=== PATIENT | female | born 1940 | race Caucasian/White ===

== ENCOUNTER 2018-12-23 10:53 | Emergency (ER) | payer MEDICARE, BC ==
[2018-12-23] MEDS ORDERED: Sodium Chloride 0.9% 10 ML Syringe FLUSH PRN (11:08)
[2018-12-23] MEDS ORDERED: HYDROmorphone 0.5 MG/0.5 ML Syringe IVPUSH ONE (12:13)
--- NOTE | 2018-12-23 12:47 | CR ---
Chest: Portable view of the chest was obtained. Comparison: Previous chest x-ray of 04/07/09. Heart size and mediastinum are within normal limits for portable technique. Lungs are clear with no acute parenchymal change. Bony structures are grossly intact. Impression: 1. Nothing acute is seen on portable chest x-ray. Diagnostic code #1
[2018-12-23] MEDS ORDERED: Ondansetron 4 MG/2 ML SDV IVPUSH ONE (13:16)
[2018-12-23] MEDS ORDERED: Ketorolac 15 MG/ML SDV IVPUSH ONE (13:28)
[2018-12-23] MEDS ORDERED: Acetaminophen 325 MG Tab PO ONE (15:10)
[2018-12-23] MEDS ORDERED: Acetaminophen 325 MG Tab ONE (15:20)
--- NOTE | 2018-12-23 17:24 | MR ---
MRI brain Technique: T1 sagittal; T2, T2 FLAIR, T1, T2 gradient echo and diffusion axial; T1 and T2 gradient echo coronal images through the brain were obtained. Comparison: Prior head CT study performed earlier on the same date (10:58 AM). Findings: Mild areas of increased signal are scattered within the subcortical and periventricular white matter most likely representing small vessel ischemic demyelination change. Several areas of increased signal are also noted within the basal ganglia of similar etiology. Mild areas of increased signal is seen within the donis also of similar etiology. No larger areas of abnormal signal are seen within the brain parenchyma. No midline shift or mass effect is seen. Ventricles along with basal cisterns and sulci over the convexities are mildly prominent. Normal signal void is seen within the major cerebral arteries within the skull base. Dominant left vertebral artery is incidentally noted. Mild mucosal thickening is seen within both maxillary sinuses. Mild mucosal thickening is seen within the ethmoid and sphenoid sinus. Abnormal diffusion is seen within the left medial occipital lobe compatible with relatively acute infarct. No other diffusion abnormalities are seen. Impression: 1. Abnormal diffusion within the medial left occipital lobe compatible with relatively acute infarct. This may be reversible as no abnormal signal is seen on the FLAIR sequence at this time within this area. 2. Other senescent change as noted above. 3. Sinus findings which are most likely chronic. Diagnostic code #5
--- NOTE | 2018-12-23 17:34 | EDM.PDOC ---
ED HPI GENERAL MEDICAL PROBLEM - General Chief Complaint: Neuro Symptoms/Deficits Stated Complaint: POSSIBLE STOKE Time Seen by Provider: 12/23/18 11:08 Source of Information: Reports: Patient History Limitations: Reports: No Limitations - History of Present Illness INITIAL COMMENTS - FREE TEXT/NARRATIVE: The patient presents from Dr Cantor's office for right sided weakness and dizziness. The patient has been sick all weekend with cough, congestion, runny nose and fever. At about 8am she started to have a headache and she was dizzy. She went to her doctor and she could not even walk down the and she had weakness on the right side. When the patient arrived here she had just mild weakness in the right arm and leg. She still had the dizziness and headache. She has nausea with it. She has no chest pain, shortness of breath, abdominal pain, dysuria or hematuria. She has no history of CVA. She does have HTN and had an CA with stents. Her last time know well was 8am this morning. Onset: Sudden Duration: Hour(s): (8am) Location: Reports: Head Severity: Moderate Improves with: Reports: None Worsens with: Reports: None Associated Symptoms: Reports: Cough, Headaches, Nausea/Vomiting. Denies: Chest Pain, Fever/Chills, Shortness of Breath Treatments CAREER DEVELOPMENT COUNSELOR: Reports: Other Medication(s) Other Treatments CAREER DEVELOPMENT COUNSELOR: HTN medication Frontal Head Pain Score (Numeric/FACES): 9 - Related Data Allergies Allergy/AdvReac Type Severity Reaction Status Date / Time cephalexin monohydrate Allergy Headache Verified 12/23/18 11:33 [From Keflex] ciprofloxacin Allergy Headache Verified 12/23/18 11:33 Penicillins Allergy Nausea and Verified 12/23/18 11:33 Vomiting Home Meds: Home Meds Enalapril [Vasotec] 10 mg PO DAILY 12/23/18 [History] Hydrochlorothiazide [Microzide] 12.5 mg PO DAILY 12/23/18 [History] Insulin Glarg,Human.Rec.Analog [Lantus] 1 dose SQ BID 12/23/18 [History] Insulin Lispro [Humalog] 1 dose SQ QID 12/23/18 [History] Past Medical History HEENT History: Reports: None Cardiovascular History: Reports: Hypertension, CA, Stents Respiratory History: Reports: None Genitourinary History: Reports: None DIRECTOR OF RADIOLOGY History: Reports: None Musculoskeletal History: Reports: None Neurological History: Reports: None Psychiatric History: Reports: None Endocrine/Metabolic History: Reports: Diabetes, Type II Hematologic History: Reports: None Immunologic History: Reports: None Oncologic (Cancer) History: Reports: None Dermatologic History: Reports: None - Past Surgical History Head Surgeries/Procedures: Reports: None Cardiovascular Surgical History: Reports: Coronary Artery Stent GI Surgical History: Reports: Appendectomy, Cholecystectomy Endocrine Surgical History: Reports: None Neurological Surgical History: Reports: None Oncologic Surgical History: Reports: None Dermatological Surgical History: Reports: None Social & Family History - Tobacco Use Smoking Status *Q: Never Smoker - Caffeine Use Caffeine Use: Reports: Coffee - Recreational Drug Use Recreational Drug Use: No ED ROS GENERAL - Review of Systems Review Of Systems: See Below Constitutional: Reports: No Symptoms HEENT: Reports: No Symptoms Respiratory: Reports: Shortness of Breath, Cough Cardiovascular: Reports: No Symptoms Endocrine: Reports: No Symptoms GI/Abdominal: Reports: No Symptoms : Reports: No Symptoms Musculoskeletal: Reports: No Symptoms Skin: Reports: No Symptoms Neurological: Reports: Headache, Weakness (right arm and leg) ED EXAM, NEURO - Physical Exam Exam: See Below Exam Limited By: No Limitations General Appearance: Alert, No Apparent Distress Ears: Normal External Exam Nose: Normal Inspection Head Exam: Atraumatic, Normocephalic Neck: Normal Inspection Respiratory/Chest: No Respiratory Distress, Lungs Clear, Normal Breath Sounds Cardiovascular: Regular Rate, Rhythm, No Edema, No Murmur GI/Abdominal: Soft, Non-Tender, No Organomegaly, No Mass Neurological: Alert, Oriented x 3, Other (Mild weakness to the right arm and leg. Abnormal finger to nose with the right arm.) EKG INTERPRETATION EKG Date: 12/23/18 Time: 11:06 Rhythm: Other (Sinus bradycardia) Rate (Beats/Min): 57 [place]: Normal P-Wave: Present QRS: Normal ST-T: Normal QT: Normal Course - Vital Signs Last Recorded V/S: Last Vital Signs Temp Pulse 62 12/23/18 11:20 Resp 16 12/23/18 11:20 BP 179/87 H 12/23/18 11:20 Pulse Ox 97 12/23/18 11:20 - Orders/Labs/Meds Orders: Active Orders 24 hr Category Date Time Status Cardiac Monitoring [RC] . DIRECTED Care 12/23/18 11:08 Active EKG Documentation Completion [RC] STAT Care 12/23/18 11:10 Active Peripheral IV Care [RC] . DIRECTED Care 12/23/18 11:11 Active Ang Head [CT] Stat Exams 12/23/18 17:35 Ordered Ang Neck [CT] Stat Exams 12/23/18 17:35 Ordered Head wo Cont [CT] Routine Exams 12/23/18 11:05 Taken UA W/MICROSCOPIC [URIN] Stat Lab 12/23/18 13:28 Ordered Sodium Chloride 0.9% [Normal Saline] 100 ml Med 12/23/18 18:00 Active IV ASDIRECTED Sodium Chloride 0.9% [Saline Flush] Med 12/23/18 11:08 Active 10 ml FLUSH ASDIRECTED PRN Peripheral IV Insertion Adult [OM.PC] Stat Oth 12/23/18 11:08 Ordered Medication Orders Sodium Chloride (Normal Saline) 100 mls @ 80 mls/hr IV ASDIRECTED JIM Sodium Chloride (Saline Flush) 10 ml FLUSH ASDIRECTED PRN PRN Reason: Keep Vein Open Last Admin: 12/23/18 11:51 Dose: 10 ml Labs: Laboratory Tests 12/23/18 12/23/18 12/23/18 Range/Units 10:58 11:15 11:15 WBC 11.52 H (3.98-10.04) K/mm3 RBC 4.12 (3.98-5.22) M/mm3 Hgb 12.9 (11.2-15.7) gm/L Hct 38.4 (34.1-44.9) % MCV 93.2 (79.4-94.8) fl MCH 31.3 (25.6-32.2) pg MCHC 33.6 (32.2-35.5) g/dl RDW Std Deviation 46.4 H (36.4-46.3) fL Plt Count 439 H (182-369) K/mm3 MPV 9.1 L (9.4-12.3) fl Neut % (Auto) 73.3 H (34.0-71.1) % Lymph % (Auto) 19.8 (19.3-51.7) % [place] % (Auto) 5.6 (4.7-12.5) % Eos % (Auto) 0.7 (0.7-5.8) Baso % (Auto) 0.3 (0.1-1.2) % Neut # (Auto) 8.46 H (1.56-6.13) K/mm3 Lymph # (Auto) 2.28 (1.18-3.74) K/mm3 [place] # (Auto) 0.64 H (0.24-0.36) K/mm3 Eos # (Auto) 0.08 (0.04-0.36) K/mm3 Baso # (Auto) 0.03 (0.01-0.08) K/mm3 PT 10.7 (9.7-12.0) SECONDS INR 0.98 APTT 27 (22-31) SECONDS Sodium (136-145) mEq/L Potassium (3.5-5.1) mEq/L Chloride (98-107) mEq/L Carbon Dioxide (21-32) mEq/L Anion Gap (5-15) BUN (7-18) mg/dL Creatinine (0.55-1.02) mg/dL Est Cr Clr Drug Dosing mL/min Estimated GFR (MDRD) (>60) mL/min BUN/Creatinine Ratio (14-18) Glucose (83-115) mg/dL POC Glucose 165 H (83-110) mg/dL Calcium (8.5-10.1) mg/dL Magnesium (1.8-2.4) mg/dl Total Bilirubin (0.2-1.0) mg/dL AST (15-37) U/L ALT (14-59) U/L Alkaline Phosphatase (46-116) U/L Troponin I (0.00-0.056) ng/mL Total Protein (6.4-8.2) g/dl Albumin (3.4-5.0) g/dl Globulin gm/dL Albumin/Globulin Ratio (1-2) 12/23/18 Range/Units 11:15 WBC (3.98-10.04) K/mm3 RBC (3.98-5.22) M/mm3 Hgb (11.2-15.7) gm/L Hct (34.1-44.9) % MCV (79.4-94.8) fl MCH (25.6-32.2) pg MCHC (32.2-35.5) g/dl RDW Std Deviation (36.4-46.3) fL Plt Count (182-369) K/mm3 MPV (9.4-12.3) fl Neut % (Auto) (34.0-71.1) % Lymph % (Auto) (19.3-51.7) % [place] % (Auto) (4.7-12.5) % Eos % (Auto) (0.7-5.8) Baso % (Auto) (0.1-1.2) % Neut # (Auto) (1.56-6.13) K/mm3 Lymph # (Auto) (1.18-3.74) K/mm3 [place] # (Auto) (0.24-0.36) K/mm3 Eos # (Auto) (0.04-0.36) K/mm3 Baso # (Auto) (0.01-0.08) K/mm3 PT (9.7-12.0) SECONDS INR APTT (22-31) SECONDS Sodium 138 (136-145) mEq/L Potassium 3.6 (3.5-5.1) mEq/L Chloride 100 (98-107) mEq/L Carbon Dioxide 28 (21-32) mEq/L Anion Gap 13.6 (5-15) BUN 14 (7-18) mg/dL Creatinine 0.9 (0.55-1.02) mg/dL Est Cr Clr Drug Dosing 37.00 mL/min Estimated GFR (MDRD) > 60 (>60) mL/min BUN/Creatinine Ratio 15.6 (14-18) Glucose 173 H (83-115) mg/dL POC Glucose (83-110) mg/dL Calcium 9.2 (8.5-10.1) mg/dL Magnesium 2.0 (1.8-2.4) mg/dl Total Bilirubin 0.4 (0.2-1.0) mg/dL AST 20 (15-37) U/L ALT 18 (14-59) U/L Alkaline Phosphatase 68 (46-116) U/L Troponin I < 0.017 (0.00-0.056) ng/mL Total Protein 8.2 (6.4-8.2) g/dl Albumin 3.6 (3.4-5.0) g/dl Globulin 4.6 gm/dL Albumin/Globulin Ratio 0.8 L (1-2) Meds: Medications Generic Name Dose Route Start Last Admin Trade Name Freq PRN Reason Stop Dose Admin Sodium Chloride 100 mls @ 80 mls/hr 12/23/18 18:00 Normal Saline IV ASDIRECTED JIM Sodium Chloride 10 ml 12/23/18 11:08 12/23/18 11:51 Saline Flush FLUSH 10 ml ASDIRECTED PRN Administration Keep Vein Open Discontinued Medications Generic Name Dose Route Start Last Admin Trade Name Freq PRN Reason Stop Dose Admin Acetaminophen 975 mg 12/23/18 15:10 12/23/18 15:15 Tylenol PO 12/23/18 15:11 975 mg NOW ONE Administration Acetaminophen Confirm 12/23/18 15:20 Tylenol Administered 12/23/18 15:21 Dose 325 mg .ROUTE .STK-MED ONE Hydromorphone HCl 0.5 mg 12/23/18 12:13 12/23/18 12:22 Dilaudid IVPUSH 12/23/18 12:14 0.5 mg ONETIME ONE Administration Iopamidol 100 ml 12/23/18 18:00 Isovue-370 (76%) IVPUSH 12/23/18 18:01 ONETIME ONE Ketorolac Tromethamine 15 mg 12/23/18 13:28 12/23/18 13:39 Toradol IVPUSH 12/23/18 13:29 15 mg ONETIME ONE Administration Metoclopramide HCl 10 mg 12/23/18 18:02 Reglan IVPUSH 12/23/18 18:03 ONETIME ONE Ondansetron HCl 4 mg 12/23/18 13:16 12/23/18 13:21 Zofran IVPUSH 12/23/18 13:17 4 mg ONETIME ONE Administration - Re-Assessments/Exams Free Text/Narrative Re-Assessment/Exam: 12/23/18 18:03 A stroke alert was called and the patient was last known well at 8am this morning. She has mild weakness to her right arm and leg. I ordered an IV saline lock, EKG, CT of her head, CXR, and labs. Her CXR shows nothing acute. The CT of her head shows no acute intracranial abnormality. Mild age appropriate global brain atrophy. Her WBC was elevated at 11.52. Her PT and PTT look good. Her CMP looks good. Her symptoms got better as far as her weakness. She still has a headache and dizziness. I ordered some zofran and dilaudid. The dilaudid did not agree with her. I was able to get an MRI and that showed abnormal diffusion within the medial left occipital lobe compatible with relatively acute infarct. This may be reversible as no abnormal signal is seen on the FLAIR sequence at this time within this area. I called [facility] in [place] and talked with Dr Carlos the neurologist production operator and Dr Gonzalez the hospitalist and they agreed to the transfer. They did want a CTA done so I have ordered that. Departure - Departure Time of Disposition: 18:15 Disposition: DC/Tfer to [facility] 02 Condition: Fair Clinical Impression: Dizziness Cerebrovascular accident (CVA) Qualifiers: CVA mechanism: unspecified Qualified Code(s): I63.9 - Cerebral infarction, unspecified Headache Qualifiers: Headache type: unspecified Headache chronicity pattern: acute headache Intractability: not intractable Qualified Code(s): R51 - Headache - Discharge Information Referrals: Danis Cantor MD [Primary Care Provider] - Forms: ED Department Discharge - My Orders Last 24 Hours: My Active Orders 12/23/18 11:05 Head wo Cont [CT] Routine 12/23/18 11:08 Cardiac Monitoring [RC] . DIRECTED Sodium Chloride 0.9% [Saline Flush] 10 ml FLUSH ASDIRECTED PRN Peripheral IV Insertion Adult [OM.PC] Stat 12/23/18 11:10 EKG Documentation Completion [RC] STAT 12/23/18 11:11 Peripheral IV Care [RC] . DIRECTED 12/23/18 13:28 UA W/MICROSCOPIC [URIN] Stat 12/23/18 17:35 Ang Head [CT] Stat Ang Neck [CT] Stat 12/23/18 18:00 Sodium Chloride 0.9% [Normal Saline] 100 ml IV ASDIRECTED - Assessment/Plan Last 24 Hours: My Active Orders 12/23/18 11:05 Head wo Cont [CT] Routine 12/23/18 11:08 Cardiac Monitoring [RC] . DIRECTED Sodium Chloride 0.9% [Saline Flush] 10 ml FLUSH ASDIRECTED PRN Peripheral IV Insertion Adult [OM.PC] Stat 12/23/18 11:10 EKG Documentation Completion [RC] STAT 12/23/18 11:11 Peripheral IV Care [RC] . DIRECTED 12/23/18 13:28 UA W/MICROSCOPIC [URIN] Stat 12/23/18 17:35 Ang Head [CT] Stat Ang Neck [CT] Stat 12/23/18 18:00 Sodium Chloride 0.9% [Normal Saline] 100 ml IV ASDIRECTED
[2018-12-23] MEDS ORDERED: Sodium Chloride 0.9% 100 ML IV SCH (18:00)
[2018-12-23] MEDS ORDERED: Iopamidol 755 Mg/ML 100 ML Bottle IVPUSH ONE (18:00)
[2018-12-23] MEDS ORDERED: Metoclopramide 10 MG/2 ML SDV IVPUSH ONE (18:02)
--- NOTE | 2018-12-23 19:11 | CT ---
CT angiogram of brain Technique: Multiple axial sections through the brain were obtained. Intravenous contrast was performed in the arterial phase. MIP imaging was obtained. Findings: Slight luxury perfusion is seen within the medial left occipital lobe. Basilar artery is patent. No discrete stenosis is seen within the posterior cerebral arteries. No occlusion is seen within the posterior cerebral arteries. Anterior and middle cerebral arteries show no focal stenosis. No occlusion is seen. No discrete aneurysm is identified. Impression: 1. Slight luxury perfusion within medial left occipital lobe. 2. No focal stenosis is seen within the main cerebral arteries. Diagnostic code #2
--- NOTE | 2018-12-23 19:14 | CT ---
CT angiogram of neck Technique: Multiple axial sections through the neck were obtained. Intravenous contrast was performed in the arterial phase. Multiple MIP images were obtained. Findings: Vertebral arteries are patent into the basilar artery without focal stenosis. Common carotid arteries are patent. Plaque is noted with possible small plaque ulceration on the left side within the proximal internal carotid artery near the carotid bulb. Approximately 50% stenosis is noted within the proximal right internal carotid artery near the carotid bulb. Internal carotid artery is otherwise unremarkable. Impression: 1. Plaque in the proximal left internal carotid artery near the carotid bulb which shows possible ulceration. 2. Mild diffuse narrowing within the proximal right internal carotid artery near the carotid bulb showing narrowing of about 50%. 3. Other portions of the vertebral, common carotid arteries and internal carotid artery show no additional stenosis or occlusion. Diagnostic code #3
--- NOTE | 2018-12-24 08:34 | CT ---
Head CT Technique: Multiple axial sections through the brain were obtained. Intravenous contrast was not utilized. Comparison: No prior intracranial imaging. Findings: Ventricles along with basal cisterns and sulci over the convexities are mildly prominent. Diminished density is noted within the periventricular white matter compatible with small vessel ischemic demyelination change. Small old infarct is noted within the left frontal region. No other abnormal parenchymal densities are seen. No evidence of intracranial hemorrhage. No midline shift or mass effect is seen. Bone window settings were reviewed which show no acute calvarial abnormality. Mild areas of mucosal thickening are seen within the sphenoid and ethmoid sinuses which is most likely chronic. Atherosclerotic calcification is seen within the carotid siphon. Impression: 1. Mild senescent change as noted above. Small old infarct within the left frontal region. 2. Sinus disease which is most likely pre-existing and chronic. 3. No acute intracranial abnormality is seen. Please correlate if patient's symptoms warrant further evaluation by MRI. Diagnostic code #2 Agree with preliminary report issued by [employer], preliminary report finalized on 12/23/18, 12:26 PM Central Time [facility]
== END 2018-12-23 19:00 ==
LOC: JD.ED 10:53
DX: I63.9 Cerebral infarction, unspecified (principal); I10 Essential (primary) hypertension; E11.9 Type 2 diabetes mellitus without complications; I25.2 Old myocardial infarction; Z88.0 Allergy status to penicillin; Z88.1 Allergy status to other antibiotic agents; Z79.4 Long term (current) use of insulin; Z79.899 Other long term (current) drug therapy
CPT/HCPCS: 36415; 70450; 70496; 70498; 70551; 71045; 80053; 82962; 83735; 84484; 85025; 85610; 85730; 93005; 96374; 96375; 99285; A9270; J1170; J1885; J2405; J2765; Q9967

== ENCOUNTER 2021-09-16 09:59 | Emergency (ER) | payer MEDICARE, BC | END 2021-09-16 11:04 | disposition home or self-care (01) | LOC: JD.ED 09:59 | DX: R51.9 Headache, unspecified (principal); R42 Dizziness and giddiness; I10 Essential (primary) hypertension; I25.2 Old myocardial infarction; E11.9 Type 2 diabetes mellitus without complications; Z95.5 Presence of coronary angioplasty implant and graft; Z88.1 Allergy status to other antibiotic agents; Z88.0 Allergy status to penicillin; Z79.4 Long term (current) use of insulin | CPT/HCPCS: 99283; A9270 ==

== ENCOUNTER 2022-11-30 16:01 | Emergency (ER) | payer MEDICARE, BC ==
[2022-11-30] MEDS ORDERED: Lidocaine 1% 10 ML MDV INJECT ONE (16:29)
== END 2022-11-30 18:53 | disposition home or self-care (01) ==
LOC: JD.ED 16:01
DX: S60.851A Superficial foreign body of right wrist, initial encounter (principal); I10 Essential (primary) hypertension; I25.2 Old myocardial infarction; E11.9 Type 2 diabetes mellitus without complications; Z88.5 Allergy status to narcotic agent; Z88.1 Allergy status to other antibiotic agents; Z88.0 Allergy status to penicillin; Z95.5 Presence of coronary angioplasty implant and graft; W45.8XXA Other foreign body or object entering through skin, initial encounter
CPT/HCPCS: 73100-26-LT; 73100-LT; 82947; 99283; J3490

== ENCOUNTER 2023-03-09 18:35 | Inpatient (IN) | payer MEDICARE, BC ==
[2023-03-09] MEDS ORDERED: Sodium Chloride 0.9% 10 ML Syringe FLUSH PRN (19:01)
[2023-03-09] MEDS ORDERED: Sodium Chloride 0.9% 1,000 ML IV ONE (19:01)
[2023-03-09 19:18] LABS: HEMATOCRIT 28.7 % (37.0-47.0); HEMOGLOBIN 9.6 gm/dl (12.0-16.0); MEAN CORPUSCULAR HGB CONC 33.4 g/dl (32.0-36.0); MEAN CORPUSCULAR VOLUME 98.6 fl (83.0-99.0); MEAN PLATELET VOLUME 8.6 fl (9.4-12.3); NRBC ABSOLUTE 0.02 (0.00-0.02); NRBC PERCENT 0.2 % (0.0-0.2); PLATELET COUNT,PLT 310 K/mm3 (150-400); RED BLOOD CELL COUNT 2.91 M/mm3 (4.10-5.30); WHITE BLOOD CELL COUNT,WBC 11.51 K/mm3 (3.9-11.3)
[2023-03-09 19:36] LABS: INR 1.05; PROTHROMBIN TIME 11.2 SECONDS (9.7-12.0)
[2023-03-09 19:42] LABS: LACTIC ACID 0.7 mmol/L (0.4-2.0)
[2023-03-09 19:44] LABS: A/G RATIO 0.7 (1-2); ALBUMIN 2.9 g/dl (3.4-5.0); ANION GAP 15.4 (5-15); BILIRUBIN TOTAL 0.3 mg/dL (0.2-1.0); BUN/CREATININE RATIO 12.5 (14-18); C-REACTIVE PROTEIN 7.2 mg/dL (<1.0); CALCIUM 8.6 mg/dL (8.5-10.1); CREATININE 1.2 mg/dL (0.55-1.02); EST CRCL DRUG DOSING (CG) 25.96 mL/min; POTASSIUM,K 3.4 mEq/L (3.5-5.1); PROTEIN TOTAL,TP 7.3 g/dl (6.4-8.2)
[2023-03-09 20:06] LABS: BAND PERCENT MAN 3 % (0-10); BASOPHILS PERCENT MAN 0 (0.1-1.2); EOSINOPHILS PERCENT MAN 0 % (0.7-5.8); LYMPHOCYTES % ATYPICAL MANUAL 0 %; LYMPHOCYTES PERCENT MAN 20 % (20-40); METAMYELOCYTE PERCENT MAN 1; MONOCYTES PERCENT MAN 9 % (2-10)
[2023-03-09 20:09] LABS: ANISOCYTOSIS 1+ SLIGHT
[2023-03-09 20:10] LABS: HYPOCHROMASIA 1+ SLIGHT; MICROCYTOSIS FEW; PLATELET COUNT ESTIMATE ADEQUATE; POLYCHROMASIA FEW
[2023-03-09 20:11] LABS: TOXIC GRANULATION 1+ SLIGHT
[2023-03-09 20:34] LABS: INFLUENZA A NAA NEGATIVE (NEGATIVE); RESPIRATORY SYNCYTIAL VIR NAA NEGATIVE (NEGATIVE)
[2023-03-09 20:45] LABS: CORONAVIRUS COVID-19 NAA POSITIVE (NEGATIVE)
[2023-03-09] MEDS ORDERED: REMDESIVIR 200 MG in Sodium Chloride 0.9% 250 ML IV ONE (21:22)
[2023-03-09] MEDS ORDERED: REMDESIVIR 100 MG ONE (22:25)
[2023-03-09] MEDS: Sodium Chloride 0.9% 1,000 ML IV SCH (22:42)
[2023-03-10] MEDS ORDERED: Ondansetron 4 MG/2 ML SDV IVPUSH PRN (00:01)
[2023-03-10 03:52] LABS: APPEARANCE,URINE CLEAR (Clear); BILIRUBIN,URINE NEGATIVE (Negative); COLOR,URINE YELLOW (Yellow); GLUCOSE,URINE 1+ (Negative); KETONES,URINE NEGATIVE (Negative); LEUKOCYTE ESTERASE,URINE TRACE (Negative); NITRITE,URINE NEGATIVE (Negative); OCCULT BLOOD,URINE NEGATIVE (Negative); PROTEIN,URINE 1+ (Negative); UROBILINOGEN,URINE 0.2 (0.2-1.0)
[2023-03-10 04:08] LABS: RBC,URINE 0-5 /hpf (0-5)
[2023-03-10 04:09] LABS: BACTERIA,URINE FEW /hpf (FEW); HYALINE CASTS,URINE 40-50 /lpf (0-5); MUCUS,URINE MANY /hpf (FEW)
[2023-03-10] MEDS: Enalapril 5 MG Tab PO SCH ×2 (08:12→21:35)
[2023-03-10] MEDS: Hydrochlorothiazide 12.5 MG Cap PO SCH (08:12)
[2023-03-10] MEDS: Heparin Sodium 5,000 Units/ML Vial SUBCUT SCH ×3 (08:13→21:37)
[2023-03-10] MEDS: Insulin Glargine,Human Rec. Analog 100 Units/ML 3 ML Pen SUBCUT SCH ×2 (08:14→21:28)
[2023-03-10] MEDS: Sodium Chloride 0.9% 1,000 ML IV SCH ×2 (08:20→18:36)
[2023-03-10] MEDS: Acetaminophen 325 MG Tab PO PRN ×2 (10:38→21:34)
[2023-03-10] MEDS: Sertraline 50 MG Tab PO SCH (18:36)
[2023-03-10] MEDS: Famotidine 20 MG Tab PO SCH (18:36)
[2023-03-10] MEDS: REMDESIVIR 100 MG in Sodium Chloride 0.9% 250 ML IV SCH (21:33)
[2023-03-10] MEDS: Benzocaine/Cetylpyridinium/Menthol Lozenge MUCMEM PRN (21:35)
[2023-03-11] MEDS: Sodium Chloride 0.9% 1,000 ML IV SCH ×2 (05:52→15:30)
[2023-03-11] MEDS: Heparin Sodium 5,000 Units/ML Vial SUBCUT SCH ×3 (05:56→21:07)
[2023-03-11 06:23] LABS: BASOPHILS PERCENT AUTO 0.3 % (0.0-1.0); EOSINOPHILS ABSOLUTE AUTO 0.1 K/mm3 (0.0-0.4); EOSINOPHILS PERCENT AUTO 0.9 % (0.0-6.0); HEMATOCRIT 26.5 % (37.0-47.0); HEMOGLOBIN 8.5 gm/dl (12.0-16.0); IMMATURE GRAN ABSOLUTE AUTO 0.06 K/mm3 (0.00-0.05); IMMATURE GRAN PERCENT AUTO 0.8 % (0.0-0.4); LYMPHOCYTES ABSOLUTE AUTO 2.8 K/mm3 (1.0-4.8); LYMPHOCYTES PERCENT AUTO 37.2 % (24.0-44.0); MEAN CORPUSCULAR HEMOGLOBIN 31.8 pg (28.0-32.0); MEAN CORPUSCULAR HGB CONC 32.1 g/dl (32.0-36.0); MEAN CORPUSCULAR VOLUME 99.3 fl (83.0-99.0); MEAN PLATELET VOLUME 8.9 fl (9.4-12.3); MONOCYTES ABSOLUTE AUTO 0.6 K/mm3 (0.0-0.8); MONOCYTES PERCENT AUTO 7.8 % (0.0-8.0); PLATELET COUNT,PLT 281 K/mm3 (150-400); RED BLOOD CELL COUNT 2.67 M/mm3 (4.10-5.30); WHITE BLOOD CELL COUNT,WBC 7.55 K/mm3 (3.9-11.3)
[2023-03-11 06:49] LABS: C-REACTIVE PROTEIN 9.7 mg/dL (<1.0); MAGNESIUM 1.6 mg/dL (1.8-2.4)
[2023-03-11] MEDS: guaiFENesin 600 MG Tab.ER PO SCH ×3 (08:36→21:04)
[2023-03-11] MEDS: Hydrochlorothiazide 12.5 MG Cap PO SCH (08:36)
[2023-03-11] MEDS: Benzocaine/Cetylpyridinium/Menthol Lozenge MUCMEM PRN ×3 (08:37→21:04)
[2023-03-11] MEDS: Enalapril 5 MG Tab PO SCH ×2 (08:40→21:03)
[2023-03-11] MEDS: Insulin Glargine,Human Rec. Analog 100 Units/ML 3 ML Pen SUBCUT SCH ×2 (10:20→21:08)
[2023-03-11] MEDS: Phenol 1.4% Oral Spray 177 ML Bottle MUCMEM PRN ×4 (12:42→21:06)
[2023-03-11] MEDS: Famotidine 20 MG Tab PO SCH (18:38)
[2023-03-11] MEDS: Sertraline 50 MG Tab PO SCH (18:38)
[2023-03-11] MEDS: REMDESIVIR 100 MG in Sodium Chloride 0.9% 250 ML IV SCH (21:02)
[2023-03-11] MEDS: Acetaminophen 325 MG Tab PO PRN (21:04)
[2023-03-12] MEDS: Heparin Sodium 5,000 Units/ML Vial SUBCUT SCH ×2 (00:47→06:09)
[2023-03-12] MEDS: Sodium Chloride 0.9% 1,000 ML IV SCH (04:05)
[2023-03-12] MEDS: Phenol 1.4% Oral Spray 177 ML Bottle MUCMEM PRN (04:06)
[2023-03-12] MEDS: Acetaminophen 325 MG Tab PO PRN (06:08)
[2023-03-12 06:33] LABS: BASOPHILS PERCENT AUTO 0.3 % (0.0-1.0); EOSINOPHILS ABSOLUTE AUTO 0.1 K/mm3 (0.0-0.4); EOSINOPHILS PERCENT AUTO 1.8 % (0.0-6.0); HEMATOCRIT 25.4 % (37.0-47.0); HEMOGLOBIN 8.2 gm/dl (12.0-16.0); IMMATURE GRAN ABSOLUTE AUTO 0.06 K/mm3 (0.00-0.05); IMMATURE GRAN PERCENT AUTO 0.8 % (0.0-0.4); LYMPHOCYTES PERCENT AUTO 39.1 % (24.0-44.0); MEAN CORPUSCULAR HGB CONC 32.3 g/dl (32.0-36.0); MEAN CORPUSCULAR VOLUME 99.2 fl (83.0-99.0); MONOCYTES ABSOLUTE AUTO 0.5 K/mm3 (0.0-0.8); MONOCYTES PERCENT AUTO 6.2 % (0.0-8.0); NEUTROPHILS ABSOLUTE AUTO 3.9 K/mm3 (1.8-7.7); NEUTROPHILS PERCENT AUTO 51.8 % (41.0-71.0); PLATELET COUNT,PLT 288 K/mm3 (150-400); RED BLOOD CELL COUNT 2.56 M/mm3 (4.10-5.30)
[2023-03-12 06:53] LABS: A/G RATIO 0.6 (1-2); ALBUMIN 2.4 g/dl (3.4-5.0); ANION GAP 14.2 (5-15); BILIRUBIN TOTAL 0.1 mg/dL (0.2-1.0); BUN/CREATININE RATIO 12.9 (14-18); CALCIUM 7.9 mg/dL (8.5-10.1); CREATININE 0.7 mg/dL (0.55-1.02); EST CRCL DRUG DOSING (CG) 44.51 mL/min; POTASSIUM,K 3.2 mEq/L (3.5-5.1); PROTEIN TOTAL,TP 6.2 g/dl (6.4-8.2)
[2023-03-12] MEDS: Enalapril 5 MG Tab PO SCH (08:43)
[2023-03-12] MEDS: Hydrochlorothiazide 12.5 MG Cap PO SCH (08:43)
[2023-03-12] MEDS: guaiFENesin 600 MG Tab.ER PO SCH (08:46)
[2023-03-12] MEDS: Insulin Glargine,Human Rec. Analog 100 Units/ML 3 ML Pen SUBCUT SCH (10:06)
== END 2023-03-12 12:10 | disposition home or self-care (01) | DRG 178 ==
LOC: JD.ED 18:35 → JD.MS 21:37
PROVIDERS: ADMIT Internal Medicine; ATTEND Internal Medicine
PROC: 8E0ZXY6 Isolation (ICD-10-PCS; principal; 2023-03-09)
PROC: XW033E5 Introduction of Remdesivir Anti-infective into Peripheral Vein, Percutaneous Approach, New Technology Group 5 (ICD-10-PCS; 2023-03-09)
DX: U07.1 COVID-19 (principal); N18.4 Chronic kidney disease, stage 4 (severe); E86.0 Dehydration; Z66 Do not resuscitate; F32.A Depression, unspecified; I12.9 Hypertensive chronic kidney disease with stage 1 through stage 4 chronic kidney disease, or unspecified chronic kidney disease; E11.22 Type 2 diabetes mellitus with diabetic chronic kidney disease; Z88.0 Allergy status to penicillin; Z88.8 Allergy status to other drugs, medicaments and biological substances; Z79.899 Other long term (current) drug therapy; I25.2 Old myocardial infarction; Z97.3 Presence of spectacles and contact lenses; Z97.4 Presence of external hearing-aid; Z86.73 Personal history of transient ischemic attack (TIA), and cerebral infarction without residual deficits; Z79.4 Long term (current) use of insulin; Z86.16 Personal history of COVID-19; Z98.42 Cataract extraction status, left eye; Z98.41 Cataract extraction status, right eye; Z98.890 Other specified postprocedural states; Z95.5 Presence of coronary angioplasty implant and graft; Z90.49 Acquired absence of other specified parts of digestive tract; Z87.891 Personal history of nicotine dependence
CPT/HCPCS: 0241U; 36415; 71045; 71045-26; 80053; 81001; 82947; 83605; 83735; 84484; 85007; 85025; 85027; 85610; 86140; 87040; 93005; 93010; 96360; 99285; 99285-25; A9270-GY; J0248; J1644; J1815-GY; J3490; J7030; J7050

== ENCOUNTER 2023-09-22 16:13 | Emergency (ER) | payer MEDICARE, BC ==
[2023-09-22] MEDS: 50% Dextrose in Water 50 ML Syringe IVPUSH STA (16:25)
[2023-09-22 16:39] LABS: BASOPHILS PERCENT AUTO 0.2 % (0.0-1.0); EOSINOPHILS ABSOLUTE AUTO 0.1 K/mm3 (0.0-0.4); HEMATOCRIT 25.9 % (37.0-47.0); HEMOGLOBIN 8.5 gm/dl (12.0-16.0); IMMATURE GRAN ABSOLUTE AUTO 0.05 K/mm3 (0.00-0.05); IMMATURE GRAN PERCENT AUTO 0.6 % (0.0-0.4); LYMPHOCYTES ABSOLUTE AUTO 2.8 K/mm3 (1.0-4.8); LYMPHOCYTES PERCENT AUTO 30.7 % (24.0-44.0); MEAN CORPUSCULAR HEMOGLOBIN 32.3 pg (28.0-32.0); MEAN CORPUSCULAR HGB CONC 32.8 g/dl (32.0-36.0); MEAN CORPUSCULAR VOLUME 98.5 fl (83.0-99.0); MEAN PLATELET VOLUME 8.8 fl (9.4-12.3); MONOCYTES ABSOLUTE AUTO 0.8 K/mm3 (0.0-0.8); MONOCYTES PERCENT AUTO 9.1 % (0.0-8.0); NEUTROPHILS ABSOLUTE AUTO 5.3 K/mm3 (1.8-7.7); NEUTROPHILS PERCENT AUTO 58.4 % (41.0-71.0); NRBC ABSOLUTE 0.03 (0.00-0.02); NRBC PERCENT 0.3 % (0.0-0.2); PLATELET COUNT,PLT 304 K/mm3 (150-400); RED BLOOD CELL COUNT 2.63 M/mm3 (4.10-5.30); WHITE BLOOD CELL COUNT,WBC 9.08 K/mm3 (3.9-11.3)
[2023-09-22] MEDS: Dextrose 5%-0.9% NaCl 1,000 ML IV SCH (16:54)
[2023-09-22 16:57] LABS: A/G RATIO 0.7 (1-2); ALANINE AMINOTRANSFERASE,ALT 13 U/L (14-59); ALBUMIN 3.2 g/dl (3.4-5.0); ALKALINE PHOSPHATASE 45 U/L (46-116); ANION GAP 12.1 (5-15); ASPARTATE AMNIOTRANSFERASE,AST 10 U/L (15-37); BILIRUBIN TOTAL 0.3 mg/dL (0.2-1.0); BLOOD UREA NITROGEN,BUN 21 mg/dL (7-18); BUN/CREATININE RATIO 17.5 (14-18); C-REACTIVE PROTEIN 2.97 mg/dL (<0.30); CALCIUM 8.7 mg/dL (8.5-10.1); CARBON DIOXIDE,CO2 26 mEq/L (21-32); CHLORIDE,CL 102 mEq/L (98-107); CREATININE 1.2 mg/dL (0.55-1.02); ESTIMATED GFR 45 mL/min (>60); GLUCOSE RANDOM 64 mg/dL (70-99); MAGNESIUM 1.6 mg/dL (1.8-2.4); POTASSIUM,K 3.1 mEq/L (3.5-5.1); PROTEIN TOTAL,TP 8.1 g/dl (6.4-8.2); SODIUM,NA 137 mEq/L (136-145); TROPONIN I HIGH SENSITIVITY 39 pg/mL (<=51)
[2023-09-22 19:30] LABS: APPEARANCE,URINE CLEAR (Clear); BILIRUBIN,URINE NEGATIVE (Negative); COLOR,URINE YELLOW (Yellow); GLUCOSE,URINE TRACE (Negative); KETONES,URINE NEGATIVE (Negative); LEUKOCYTE ESTERASE,URINE 1+ (Negative); NITRITE,URINE NEGATIVE (Negative); OCCULT BLOOD,URINE NEGATIVE (Negative); PH,URINE 5.5 (5.0-8.0); PROTEIN,URINE NEGATIVE (Negative); UROBILINOGEN,URINE 0.2 (0.2-1.0)
[2023-09-22 19:38] LABS: BACTERIA,URINE MODERATE /hpf (FEW); MUCUS,URINE FEW /hpf (FEW); RBC,URINE 0-5 /hpf (0-5)
== END 2023-09-22 19:06 | disposition home or self-care (01) ==
LOC: JD.ED 16:13
DX: E11.649 Type 2 diabetes mellitus with hypoglycemia without coma (principal); D64.9 Anemia, unspecified; I10 Essential (primary) hypertension; I25.2 Old myocardial infarction; E11.9 Type 2 diabetes mellitus without complications; Z86.16 Personal history of COVID-19; Z86.19 Personal history of other infectious and parasitic diseases; Z90.49 Acquired absence of other specified parts of digestive tract; Z79.4 Long term (current) use of insulin; Z79.899 Other long term (current) drug therapy; Z88.1 Allergy status to other antibiotic agents; Z88.0 Allergy status to penicillin; Z88.6 Allergy status to analgesic agent
CPT/HCPCS: 36415; 70450; 80053; 81001; 82947; 83735; 84484; 85025; 86140; 87086; 93005; 96361; 96374; 99285; J7042; 93010; 99284; J3490

== ENCOUNTER 2023-10-04 17:45 | Emergency (ER) | payer MEDICARE, BC ==
[2023-10-04 18:31] LABS: BASOPHILS PERCENT AUTO 0.3 % (0.0-1.0); EOSINOPHILS ABSOLUTE AUTO 0.2 K/mm3 (0.0-0.4); EOSINOPHILS PERCENT AUTO 1.6 % (0.0-6.0); HEMATOCRIT 24.5 % (37.0-47.0); HEMOGLOBIN 8.1 gm/dl (12.0-16.0); IMMATURE GRAN ABSOLUTE AUTO 0.08 K/mm3 (0.00-0.05); IMMATURE GRAN PERCENT AUTO 0.8 % (0.0-0.4); LYMPHOCYTES ABSOLUTE AUTO 3.4 K/mm3 (1.0-4.8); LYMPHOCYTES PERCENT AUTO 33.6 % (24.0-44.0); MEAN CORPUSCULAR HEMOGLOBIN 32.9 pg (28.0-32.0); MEAN CORPUSCULAR HGB CONC 33.1 g/dl (32.0-36.0); MEAN CORPUSCULAR VOLUME 99.6 fl (83.0-99.0); MEAN PLATELET VOLUME 8.9 fl (9.4-12.3); MONOCYTES ABSOLUTE AUTO 0.8 K/mm3 (0.0-0.8); MONOCYTES PERCENT AUTO 8.2 % (0.0-8.0); NEUTROPHILS ABSOLUTE AUTO 5.6 K/mm3 (1.8-7.7); NEUTROPHILS PERCENT AUTO 55.5 % (41.0-71.0); NRBC ABSOLUTE 0.02 (0.00-0.02); NRBC PERCENT 0.2 % (0.0-0.2); PLATELET COUNT,PLT 302 K/mm3 (150-400); RED BLOOD CELL COUNT 2.46 M/mm3 (4.10-5.30); WHITE BLOOD CELL COUNT,WBC 10.08 K/mm3 (3.9-11.3)
[2023-10-04] MEDS: Sodium Chloride 0.9% 10 ML Syringe FLUSH PRN (18:42)
[2023-10-04 18:56] LABS: A/G RATIO 0.6 (1-2); ALBUMIN 2.9 g/dl (3.4-5.0); ANION GAP 11.8 (5-15); BILIRUBIN TOTAL 0.3 mg/dL (0.2-1.0); BUN/CREATININE RATIO 16.7 (14-18); CALCIUM 8.5 mg/dL (8.5-10.1); CREATININE 1.2 mg/dL (0.55-1.02); EST CRCL DRUG DOSING (CG) 35.15 mL/min; MAGNESIUM 1.8 mg/dL (1.8-2.4); POTASSIUM,K 2.8 mEq/L (3.5-5.1); PROTEIN TOTAL,TP 7.7 g/dl (6.4-8.2)
[2023-10-04] MEDS: Potassium Chloride 10 MEQ in Premix Bag 1 BAG IV SCH (19:31)
[2023-10-04] MEDS: Sodium Chloride 0.9% 1,000 ML IV ONE (19:34)
[2023-10-04] MEDS: Sodium Chloride 0.9% 1,000 ML ONE (19:35)
[2023-10-04] MEDS: Potassium Chloride 20 MEQ Tab.ER PO ONE (19:36)
[2023-10-04 19:40] LABS: APPEARANCE,URINE CLEAR (Clear); BILIRUBIN,URINE NEGATIVE (Negative); COLOR,URINE YELLOW (Yellow); GLUCOSE,URINE NEGATIVE (Negative); KETONES,URINE NEGATIVE (Negative); LEUKOCYTE ESTERASE,URINE 1+ (Negative); NITRITE,URINE NEGATIVE (Negative); OCCULT BLOOD,URINE NEGATIVE (Negative); PROTEIN,URINE NEGATIVE (Negative); UROBILINOGEN,URINE 0.2 (0.2-1.0)
[2023-10-04 20:11] LABS: BACTERIA,URINE FEW /hpf (FEW); RBC,URINE 0-5 /hpf (0-5); WBC,URINE 0-5 /hpf (0-5)
[2023-10-04 20:12] LABS: MUCUS,URINE FEW /hpf (FEW)
== END 2023-10-04 20:56 | disposition home or self-care (01) ==
LOC: JD.ED 17:45
DX: R40.4 Transient alteration of awareness (principal); E87.6 Hypokalemia; I10 Essential (primary) hypertension; I25.2 Old myocardial infarction; Z86.73 Personal history of transient ischemic attack (TIA), and cerebral infarction without residual deficits; Z95.5 Presence of coronary angioplasty implant and graft; Z79.4 Long term (current) use of insulin; Z79.899 Other long term (current) drug therapy; Z88.1 Allergy status to other antibiotic agents; Z88.0 Allergy status to penicillin; Z88.5 Allergy status to narcotic agent
CPT/HCPCS: 36415; 70450; 80053; 81001; 83735; 84484; 85025; 93005; 93246; 96365; 99285; A9270; J3480; J3490; J7030

== ENCOUNTER 2023-12-13 08:02 | Inpatient (IN) | payer MEDICARE, BC ==
[2023-12-13] MEDS: Furosemide 40 MG/4 ML VIAL IVPUSH ONE ×2 (08:25→09:17)
[2023-12-13 08:28] LABS: BASOPHILS ABSOLUTE AUTO 0.1 K/mm3 (0.0-0.2); BASOPHILS PERCENT AUTO 0.3 % (0.0-1.0); EOSINOPHILS ABSOLUTE AUTO 0.3 K/mm3 (0.0-0.4); EOSINOPHILS PERCENT AUTO 2.1 % (0.0-6.0); HEMATOCRIT 32.5 % (37.0-47.0); IMMATURE GRAN ABSOLUTE AUTO 0.08 K/mm3 (0.00-0.05); IMMATURE GRAN PERCENT AUTO 0.5 % (0.0-0.4); LYMPHOCYTES ABSOLUTE AUTO 6.2 K/mm3 (1.0-4.8); LYMPHOCYTES PERCENT AUTO 41.6 % (24.0-44.0); MEAN CORPUSCULAR HEMOGLOBIN 32.1 pg (28.0-32.0); MEAN CORPUSCULAR HGB CONC 31.7 g/dl (32.0-36.0); MEAN CORPUSCULAR VOLUME 101.2 fl (83.0-99.0); MONOCYTES ABSOLUTE AUTO 0.8 K/mm3 (0.0-0.8); MONOCYTES PERCENT AUTO 5.5 % (0.0-8.0); NEUTROPHILS ABSOLUTE AUTO 7.5 K/mm3 (1.8-7.7); RED BLOOD CELL COUNT 3.21 M/mm3 (4.10-5.30); WHITE BLOOD CELL COUNT,WBC 14.96 K/mm3 (3.9-11.3)
[2023-12-13] MEDS: LORazepam 2 MG/ML SDV IVPUSH ONE ×2 (08:34→09:12)
[2023-12-13 08:50] LABS: HEMOGLOBIN 10.3 gm/dl (12.0-16.0); PLATELET COUNT,PLT 471 K/mm3 (150-400)
[2023-12-13] MEDS: Nitroglycerin/D5W 25 MG/250 ML BOTTLE IV SCH (08:51)
[2023-12-13] MEDS: LORazepam 2 MG/ML SDV ONE (08:55)
[2023-12-13 09:04] LABS: HEMOGLOBIN A1C 7.8 %
[2023-12-13 09:07] LABS: SLIDE REVIEW ABNORMAL SMEAR
[2023-12-13 09:10] LABS: LACTIC ACID 3.2 mmol/L (0.4-2.0)
[2023-12-13 09:13] LABS: A/G RATIO 0.7 (1-2); ALANINE AMINOTRANSFERASE,ALT 13 U/L (14-59); ALBUMIN 3.2 g/dl (3.4-5.0); ALKALINE PHOSPHATASE 48 U/L (46-116); ANION GAP 15.7 (5-15); ASPARTATE AMNIOTRANSFERASE,AST 20 U/L (15-37); BILIRUBIN TOTAL 0.5 mg/dL (0.2-1.0); BLOOD UREA NITROGEN,BUN 10 mg/dL (7-18); CALCIUM 8.6 mg/dL (8.5-10.1); CARBON DIOXIDE,CO2 26 mEq/L (21-32); CHLORIDE,CL 101 mEq/L (98-107); ESTIMATED GFR 56 mL/min (>60); GLUCOSE RANDOM 193 mg/dL (70-99); MAGNESIUM 1.7 mg/dL (1.8-2.4); POTASSIUM,K 2.7 mEq/L (3.5-5.1); SODIUM,NA 140 mEq/L (136-145)
[2023-12-13 09:15] LABS: TROPONIN I HIGH SENSITIVITY 102 pg/mL (<=51)
[2023-12-13] MEDS: Sodium Chloride 0.9% 100 ML IV SCH (09:55)
[2023-12-13] MEDS: Sodium Chloride 0.9% 10 ML Syringe FLUSH PRN (09:55)
[2023-12-13] MEDS ORDERED: 50% Dextrose in Water 50 ML Syringe IVPUSH PRN (09:55)
[2023-12-13] MEDS: Iopamidol 755 Mg/ML 100 ML Bottle IVPUSH ONE (09:55)
[2023-12-13 10:30] LABS: O2 SATURATION ARTERIAL 99.2 % (96.0-97.0); PCO2 ARTERIAL 46.7 mmHg (35.0-45.0)
[2023-12-13 10:31] LABS: BASE EXCESS ARTERIAL -1.4 (-2-2.0); BICARBONATE,ARTERIAL 24 meq/L (22.0-26.0)
[2023-12-13] MEDS ORDERED: Sodium Chloride 0.9% 1,000 ML IV SCH (10:45)
[2023-12-13] MEDS: Potassium Chloride 10 MEQ in Premix Bag 1 BAG IV SCH (11:00)
[2023-12-13] MEDS ORDERED: Potassium Chloride 10 MEQ in Premix Bag 1 BAG IV SCH (11:00)
[2023-12-13 11:12] LABS: APPEARANCE,URINE CLEAR (Clear); BILIRUBIN,URINE NEGATIVE (Negative); COLOR,URINE YELLOW (Yellow); GLUCOSE,URINE TRACE (Negative); KETONES,URINE NEGATIVE (Negative); LEUKOCYTE ESTERASE,URINE NEGATIVE (Negative); NITRITE,URINE NEGATIVE (Negative); OCCULT BLOOD,URINE TRACE-INTACT (Negative); PH,URINE 6.5 (5.0-8.0); PROTEIN,URINE NEGATIVE (Negative); UROBILINOGEN,URINE 0.2 (0.2-1.0)
[2023-12-13 11:17] LABS: BACTERIA,URINE FEW /hpf (FEW); EPITHELIAL CELLS,URINE 0-5 /hpf (0-5); MUCUS,URINE FEW /hpf (FEW); WBC,URINE 0-5 /hpf (0-5)
[2023-12-13] MEDS: Magnesium Sulfate/Water 2 GM in Premix Bag 1 BAG IV ONE (11:25)
[2023-12-13] MEDS: Insulin Lispro 100 Unit/ML 3 ML KwikPen SUBCUT SCH (11:51)
[2023-12-13] MEDS: Sodium Chloride 0.9% 1,000 ML ONE (11:55)
[2023-12-13 14:48] LABS: LACTIC ACID 0.9 mmol/L (0.4-2.0)
[2023-12-13] MEDS: Aspirin 81 MG Tab.Chew PO ONE (15:30)
[2023-12-13] MEDS ORDERED: Ondansetron 4 MG Tab.DIS PO PRN (17:38)
[2023-12-13] MEDS ORDERED: LORazepam 0.5 MG Tab PO PRN ×2 (17:38→17:44)
[2023-12-13] MEDS ORDERED: oxyCODONE 5 MG Tab PO PRN (17:44)
[2023-12-13] MEDS ORDERED: Sertraline 50 MG Tab PO SCH (19:00)
[2023-12-13] MEDS ORDERED: Famotidine 20 MG Tab PO SCH (19:00)
[2023-12-13] MEDS ORDERED: Enalapril 5 MG Tab PO SCH (21:00)
[2023-12-14] MEDS: LORazepam 2 MG/ML SDV IVPUSH PRN (02:15)
[2023-12-14] MEDS: Morphine 2 MG/ML SYRINGE IVPUSH PRN (07:26)
[2023-12-14] MEDS ORDERED: Enoxaparin 40 MG/0.4 ML Syringe SUBCUT SCH (09:00)
[2023-12-14] MEDS ORDERED: Aspirin 81 MG Tab.EC PO SCH (09:00)
[2023-12-14] MEDS: Acetaminophen 325 MG Tab PO PRN (19:57)
[2023-12-15] MEDS: Ondansetron 4 MG/2 ML SDV IVPUSH PRN (09:30)
[2023-12-17] MEDS: Glycopyrrolate 0.2 MG/ML SDV IVPUSH PRN (10:50)
[2023-12-18] MEDS: Morphine 10 MG/0.5 ML Oral Syringe PO PRN (05:18)
[2023-12-18] MEDS: LORazepam 0.5 MG Tab PO PRN (05:19)
[2023-12-18] MEDS: Morphine 2 MG/ML SYRINGE IVPUSH PRN (08:13)
[2023-12-18 09:25] VITALS: BP 148/86
[2023-12-18] MEDS: LORazepam 2 MG/ML SDV IVPUSH PRN ×2 (10:02→20:29)
[2023-12-18] MEDS: Glycopyrrolate 0.2 MG/ML SDV IVPUSH SCH (12:50)
[2023-12-18] MEDS: LORazepam 2 MG/ML SDV IVPUSH ONE (13:05)
[2023-12-18] MEDS: Morphine 2 MG/ML SYRINGE IVPUSH ONE (13:05)
[2023-12-18] MEDS: Sodium Chloride 0.9% 500 ML IV ONE (14:05)
[2023-12-18] MEDS: Morphine 100 MG in Sodium Chloride 0.9% 90 ML IV SCH (14:06)
[2023-12-18] MEDS ORDERED: Glycopyrrolate 0.2 MG/ML SDV IVPUSH PRN (15:34)
[2023-12-18] MEDS: Glycopyrrolate 0.2 MG/ML SDV IVPUSH PRN (15:53)
[2023-12-18] MEDS: Scopalamine 1mg/3day Transdermal Patch TRDERM SCH (15:53)
[2023-12-18 20:37] VITALS: PULSE 118
== END 2023-12-19 02:05 | disposition expired ==
LOC: JD.ED 08:02 → JD.ICU 09:29 → JD.MS 12-17 16:07
PROVIDERS: ADMIT Family Medicine; ATTEND Student in an Organized Health Care Education/Training Program
PROC: 4A033R1 Measurement of Arterial Saturation, Peripheral, Percutaneous Approach (ICD-10-PCS; principal; 2023-12-13)
PROC: 5A09357 Assistance with Respiratory Ventilation, Less than 24 Consecutive Hours, Continuous Positive Airway Pressure (ICD-10-PCS; 2023-12-13)
DX: I50.1 Left ventricular failure, unspecified (principal); I13.0 Hypertensive heart and chronic kidney disease with heart failure and stage 1 through stage 4 chronic kidney disease, or unspecified chronic kidney disease; I50.33 Acute on chronic diastolic (congestive) heart failure; I21.4 Non-ST elevation (NSTEMI) myocardial infarction; I10 Essential (primary) hypertension; J96.01 Acute respiratory failure with hypoxia; E11.9 Type 2 diabetes mellitus without complications; R65.11 Systemic inflammatory response syndrome (SIRS) of non-infectious origin with acute organ dysfunction; E87.20 Acidosis, unspecified; Z88.8 Allergy status to other drugs, medicaments and biological substances; Z66 Do not resuscitate; Z51.5 Encounter for palliative care; I25.10 Atherosclerotic heart disease of native coronary artery without angina pectoris; E11.22 Type 2 diabetes mellitus with diabetic chronic kidney disease; I25.2 Old myocardial infarction; H91.90 Unspecified hearing loss, unspecified ear; N18.31 Chronic kidney disease, stage 3a; J43.9 Emphysema, unspecified; F32.A Depression, unspecified; H54.7 Unspecified visual loss; E83.42 Hypomagnesemia; F41.9 Anxiety disorder, unspecified; E87.6 Hypokalemia; Z88.0 Allergy status to penicillin; Z86.16 Personal history of COVID-19; Z88.5 Allergy status to narcotic agent; Z79.82 Long term (current) use of aspirin; Z79.4 Long term (current) use of insulin; Z90.89 Acquired absence of other organs; Z79.899 Other long term (current) drug therapy; Z88.1 Allergy status to other antibiotic agents; Z98.49 Cataract extraction status, unspecified eye; Z95.5 Presence of coronary angioplasty implant and graft; Z90.49 Acquired absence of other specified parts of digestive tract; Z86.73 Personal history of transient ischemic attack (TIA), and cerebral infarction without residual deficits
CPT/HCPCS: 36415; 36600; 71045; 71045-26; 71275; 71275-26; 80053; 81001; 82803; 83036; 83605; 83735; 83880; 84484; 85025; 85379; 86140; 87040; 93005; 93010; 93306; 94660; 96365; 96375; 96376; 99285; 99285-25; A9270-GY; C1758; J1596; J1940; J2060; J2270; J2305; J2405; J3475; J3480; J3490; J7030; Q9967